=== PATIENT | male | born 1995 | race Caucasian/White ===

== ENCOUNTER 2020-05-01 13:25 | Emergency (ER) | payer SELFPAY ==
--- OUTSIDE RECORDS SUMMARY | 2020-05-01 13:28 | XMS REPORT | Clinical Summary ---
:1995 Author Organization [facility] Address [address] [place] [address] Care Team Providers Name Role Phone Pcp, Primary Care Provider Unavailable Allergies Active Allergy Reactions Severity Noted Date Comments Penicillins Other (See Comments) Low 11/28/2019 Childho od reaction Medications Medication Sig Dispensed Refills Start Date End Date Status predniSONE Take 2 15 tablet 0 11/28/2019 Active (DELTASONE) 10 MG tablets (20 tablet mg total) by mouth 3 (three) times daily. cyclobenzaprine Take 1 20 tablet 0 11/28/2019 Exp ired (FLEXERIL) 10 MG tablet (10 0 tablet mg total) by mouth every 8 (eight) hours as needed for Muscle spasms for up to 10 days. acetaminophen-codein Take 1-2 15 tablet 0 11/28/2019 12/03/19 2 Discontinued e (TYLENOL #3) tablets by 0 (Reo rder) 300-30 mg per tablet mouth every 6 (six) hours as needed for Pain for up to 10 days. Max Daily Amount: 8 tablets acetaminophen-codein Take 1-2 15 tablet 0 12/03/2019 12/03/19 2 Discontinued e (TYLENOL #3) tablets by 0 300-30 mg per mouth every tabletIndications: 6 (six) Chronic midline low hours as back pain with needed for left-sided sciatica Pain for up to 10 days. Max Daily Amount: 8 tablets acetaminophen-codein Take 1 30 tablet 0 12/03/2019 12/13/19 2 e (TYLENOL-CODEINE tablet by 0 #3) 300-30 mg per mouth every tabletIndications: 4 (four) Chronic midline low hours as back pain with needed for left-sided sciatica Pain for up to 10 days. 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 (Primary Dx); MD Christopher Acute left-side d low back pain with right-sided sciatica 11/28/2019 Emergency Emergency Medicine Zara Berman Left l ow back pain, MD Domi unspecified chr onicity, unspecified whe ther sciatica presen t (Primary Dx) 11/28/2019 Travel after 05/01/2019 Social History Tobacco Use Types Packs/Day Years Used Date Current Every Day Smoker Cigarettes 1 Smokeless Tobacco: Never Used Alcohol Use Drinks/Week oz/Week Comments Yes Sex Assigned at Date Recorded Not on file Last Filed Vital Signs Vital Sign Reading Time Taken Comments Blood Pressure 129/87 12/03/2019 10:44 AM CDT Pulse 116 12/03/2019 10:44 AM CDT Temperature 36.8 C (98.3 F) 11/28/2019 9:24 PM CDT Respiratory Rate 18 11/28/2019 9:24 PM CDT Oxygen Saturation 98% 12/03/2019 10:44 AM CDT Inhaled Oxygen Concentration - - Weight 140.6 kg (310 lb) 12/03/2019 10:44 AM CDT Height 175.3 cm (5' 9") 11/28/2019 8:00 PM CDT Body Mass Index 45.78 11/28/2019 8:00 PM CDT Plan of Treatment Health Maintenance Due Date Last Done Comments PNEUMOCOCCAL VACCINE 0-64 YRS (1 of 1 - PPSV23) 09/06/1999 LIPID PANEL 2013 INFLUENZA VACCINE (#1) 2019 Procedures Procedure Name Priority Date/Time Associated Diagnosis Comme nts XR SPINE LUMBAR STAT 11/28/2019 9:02 PM Resul ts for this COMPLETE MIN 4 CDT procedure are in VIEWS the results section. after 05/01/2019 Results XR spine lumbar complete 4 views min (11/28/2019 9:02 PM CDT) Specimen Narrative Performed At FINAL REPORT [facility] RAD, SPINE, LUMBAR, COMPLETE (MIN 4 VIEW S) CLINICAL INDICATION: BACK PAIN COMPARISON: None FINDINGS: Oblique, frontal, lateral and coned lateral radiographs of the lumbar spine. Alignment: No acute malalignment. Vertebral Bodies: Normal in height. Disc Spaces: Preserved. Soft tissues: Normal. IMPRESSION: No acute abnormality of the lumbar spine . Signed: Annamarie Morales MD Report Verified Date/Time: 11/28/2019 21:18:02 Procedure Note Interface, External Ris In - 11/28/2019 9:20 PM CDT FINAL REPORT RAD, SPINE, LUMBAR, COMPLETE (MIN 4 VIEW S) CLINICAL INDICATION: BACK PAIN COMPARISON: None FINDINGS: Oblique, frontal, lateral and coned lateral radiographs of the lumbar spine. Alignment: No acute malalignment. Vertebral Bodies: Normal in height. Disc Spaces: Preserved. Soft tissues: Normal. IMPRESSION: No acute abnormality of the lumbar spine . Signed: Annamarie Morales MD Report Verified Date/Time: 11/28/2019 2 1:18:02 Performing Organization Address City/State/Zipcode Phone Number GE RIS after 05/01/2019
--- OUTSIDE RECORDS SUMMARY | 2020-05-01 13:28 | XMS REPORT | Continuity of Care Document ---
:1995 Author Organization [facility] t Address [address] [place] [address] Care Team Providers Name Role Phone Pcp Primary Care Physician Unavailable Christopher Sanchez MD Attending Clinician Domi Berman MD Attending Clinician Problems This patient has no known problems. Allergies, Adverse Reactions, Alerts Allergy Allergy Status Severity Reaction(s) Onset Inactive Treating Comm ents Source Name Type Date Date Clinician Penicill Drug Active Other (See Childhood C HI [facility] ins Allergy Comments) 11-27 reaction Luke s - 00:00: Medical [address] [place] [address] Social History Social Habit Start Date Stop Date Quantity Comments Source History of tobacco Cigarette Smoker [facility] Sex Assigned At [facility] Cigarettes smoked 2019-12-03 2019-12-03 [facility] - current (pack per 00:00:00 00:00:00 Medical Center day) - Reported Tobacco use and 2019-12-03 2019-12-03 Never used [facility] - exposure 00:00:00 00:00:00 [facility] Alcohol intake 2019-12-03 2019-12-03 Current drinker [facility] - 00:00:00 00:00:00 of alcohol [facility] (finding) Smoking Status Start Date Stop Date Source Current every day smoker 2019-12-03 00:00:00 [facility] Medications Ordered Filled Start Stop Current Ordering Indication Dosage Frequency Signature Comments Components Source Medication Medication Date Date Medication? Clinician (SIG) Name Name acetaminoph 2019- No Chronic 1{tbl} Take [address] [facility] en-codeine 12-02 midline low tablet by Roni - (TYLENOL-CO 00:00: 23:59 back pain mouth Medical DEINE #3) 00 :00 with every 4 Center 300-30 mg left-sided (four) per tablet sciatica hours as needed for Pain for up to 10 days. Max Daily Amount: 6 tablets acetaminoph 2019- No Chronic 1{tbl} Take 1-[address] [facility] [address] en-codeine 12-02 midline low tablets by Roin - (TYLENOL 00:00: 00:00 back pain mouth Me dical #3) 300-30 00 :00 with every 6 Center mg per left-sided (six) tablet sciatica hours as needed for Pain for up to 10 days. Max Daily Amount: 8 tablets predniSONE Yes 20mg [id number] Take [address] [facility] [address] (DELTASONE) 11-27 [id number] tablets [facility] - 10 MG 00:00: 3D (20 mg Medical tablet 00 total) by Center mouth 3 (three) times daily. cyclobenzap 2019- No 10mg Take [address] [facility] [address] rine 11-27 tablet (10 [facility] - (FLEXERIL) 00:00: 23:59 mg total) M edical 10 MG 00 :00 by mouth Center tablet every 8 (eight) hours as needed for Muscle spasms for up to 10 days. acetaminoph 2019- No 1{tbl} Take 1-[address] en-codeine 11-27 tablets by Brook richter - (TYLENOL 00:00: 00:00 mouth Medical #3) 300-30 00 :00 every 6 Center mg per (six) tablet hours as needed for Pain for up to 10 days. Max Daily Amount: 8 tablets Vital Signs Vital Name Observation Time Observation Value Comments Source Systolic blood 2019-12-03 10:44:00 129 mm[Hg] [facility] Diastolic blood 2019-12-03 10:44:00 87 mm[Hg] [facility] Heart rate 2019-12-03 10:44:00 116 /min [facility] Body weight 2019-12-03 10:44:00 140.615 kg [facility] BMI 2019-12-03 10:44:00 45.78 kg/m2 [facility] Oxygen saturation in 2019-12-03 10:44:00 98 /min [facility] - Arterial blood by Medical Ce nter Pulse oximetry Body temperature 2019-11-28 21:24:00 36.83 Evelyne [facility] Respiratory rate 2019-11-28 21:24:00 18 /min [facility] Body height 2019-11-28 20:00:00 175.3 cm [facility] Procedures Procedure Date / Time Performed Performing Clinician Sour e XR SPINE LUMBAR 2019-11-28 21:02:00 Zara Berman [facility] - COMPLETE MIN [address] Plan of Care Planned Activity Planned Date Details Comments Source Future Scheduled 2019-12-07 INFLUENZA VACCINE (#1) [facility] - Test 00:00:00 [code = INFLUENZA Medical Ce nter VACCINE (#1)] Future Scheduled 2013 Lipid panel [facility] - Test 00:00:00 (procedure) [code = [facility] [id number]] Future Scheduled 1999-09-06 PNEUMOCOCCAL VACCINE [facility] - Test 00:00:00 0-64 YRS (1 of 1 - Medical C enter PPSV23) [code = PNEUMOCOCCAL VACCINE 0-64 YRS (1 of 1 - PPSV23)] Results Test Description Test Time Test Comments Results Result Sour e Comments RAD, SPINE, 2019-11-28 Reason for FINAL REPORT LUMBAR, COMPLETE 21:18:00 exam:->BACK PATIENT ID: (MIN 4 VIEWS) PAIN [id number] RAD, SPINE, LUMBAR, COMPLETE (MIN 4 VIEWS) CLINICAL INDICATION: BACK PAIN COMPARISON: None FINDINGS: Oblique, frontal, lateral and coned lateral radiographs of the lumbar spine. Alignment: No acute malalignment.Verteb ral Bodies: Normal in height.Disc Spaces: Preserved.Soft tissues: Normal. IMPRESSION: No acute abnormality of the lumbar spine. Signed: Annamarie Morales MDReport Verified Date/Time: 11/28/2019 21:18:02 spine lumbar 2019-11-28 Interface, External [facility] complete 4 views 21:18:00 Ris In - 11/28/2019 - Medical min 9:20 PM [facility] RAD, SPINE, LUMBAR, COMPLETE (MIN 4 VIEWS) CLINICAL INDICATION: BACK PAIN COMPARISON: None FINDINGS: Oblique, frontal, lateral and coned lateral radiographs of the lumbar spine. Alignment: No acute malalignment.Verteb ral Bodies: Normal in height.Disc Spaces: Preserved.Soft tissues: Normal. IMPRESSION: No acute abnormality of the lumbar spine. Signed: Annamarie Morales [facility] Verified Date/Time: 11/28/2019 21:18:02
[2020-05-01 15:35] LABS: SARS-COV-2 RT PCR NEGATIVE (NEGATIVE)
--- NOTE | 2020-05-01 15:46 | ER ---
Nurse's Notes [facility] Name: Mono Rodriguez Age: 24 yrs Sex: Male : 1995 Arrival Date: 05/01/2020 Time: 13:31 Bed 25 Private MD: Diagnosis: Acute upper respiratory infection, unspecified Presentation: 05/01 13:40 Chief complaint: Patient states: i have diarrhea cough sore throat yesterday morning, tw2 no diarrhea since then, i am congested, my stomach is turning, i have to get checked out before i am able to go to work. Chief complaint: Patient states: also have a headache. Coronavirus screen: cough unrelated to allergies, diarrhea, fatigue, fever, nausea, runny nose, sore throat, vomiting. Client presents with at least one sign or symptom that may indicate coronavirus-19. Standard/surgical mask placed on the client. Provider contacted for isolation considerations. Ebola Screen: Patient denies travel to an Ebola-affected area in the 21 days before illness onset. Initial Sepsis Screen: Does the patient meet any 2 criteria? No. Patient's initial sepsis screen is negative. Does the patient have a suspected source of infection? No. Patient's initial sepsis screen is negative. Risk Assessment: Do you want to hurt yourself or someone else? Patient reports no desire to harm self or others. Onset of symptoms was May 01, 2020. 13:40 Method Of Arrival: Ambulatory tw2 13:40 Acuity: KRYSTINA 4 tw2 Triage Assessment: 13:40 General: Appears obese, well groomed, Behavior is calm, cooperative, appropriate for tw2 age. EENT: Reports nasal congestion. Neuro: Level of Consciousness is awake, alert, obeys commands, Oriented to person, place, time, situation. Cardiovascular: Patient's skin is warm and dry. Respiratory: Reports. Respiratory: Airway is patent Respiratory effort is even, unlabored, Respiratory pattern is regular, symmetrical. GI: No signs and/or symptoms were reported involving the gastrointestinal system. : No signs and/or symptoms were reported regarding the genitourinary system. Derm: No signs and/or symptoms reported regarding the dermatologic system. Musculoskeletal: Range of motion: intact in all extremities. Historical: - Allergies: 13:43 PENICILLINS; tw2 - Home Meds: 13:43 ear drops [Active]; tw2 - PMHx: 13:43 None; tw2 - PSHx: 13:43 None; tw2 - Immunization history:: Adult Immunizations. - Social history:: Smoking status: . Screenin:57 Abuse screen: Denies threats or abuse. Nutritional screening: No deficits noted. tw2 Tuberculosis screening: No symptoms or risk factors identified. Fall Risk None identified. Assessment: 15:35 General: Appears in no apparent distress. Behavior is calm, cooperative. Pain: Denies hb pain. Neuro: Level of Consciousness is awake, alert, obeys commands, Oriented to person, place, time, situation. Cardiovascular: Capillary refill < 3 seconds Patient's skin is warm and dry. Respiratory: Airway is patent Respiratory effort is even, unlabored, Respiratory pattern is regular, symmetrical. GI: No signs and/or symptoms were reported involving the gastrointestinal system. : No signs and/or symptoms were reported regarding the genitourinary system. EENT: No signs and/or symptoms were reported regarding the EENT system. Derm: Skin is pink, warm \T\ dry. Musculoskeletal: No signs and/or symptoms reported regarding the musculoskeletal system. Vital Signs: 13:40 BP 136 / 86; Pulse 87; Resp 18; Temp 97.9(TE); Pulse Ox 100% on R/A; Weight 136.08 kg tw2 (R); Height 5 ft. 9 in. (175.26 cm); Pain 0/10; 13:40 Body Mass Index 44.30 (136.08 kg, 175.26 cm) tw2 ED Course: 13:31 Patient arrived in ED. ds1 13:42 Triage completed. tw2 13:43 Arm band placed on. tw2 14:18 Rosalinda Aguilar FNP-C is PHCP. kb 14:18 Zoran Dhillon MD is Attending Physician. kb 15:32 Bed in low position. Call light in reach. tw2 15:46 Zara Espino, RN is Primary Nurse. hb 15:58 No provider procedures requiring assistance completed. Patient did not have IV access hb during this emergency room visit. Administered Medications: No medications were administered Outcome: 15:44 Discharge ordered by . kb 15:58 Discharged to home ambulatory. hb 15:58 Condition: stable 15:58 Discharge instructions given to patient, Instructed on discharge instructions, follow up and referral plans. medication usage, Demonstrated understanding of instructions, follow-up care, medications, Prescriptions given X 2. 15:58 Patient left the ED. hb Signatures: Rosalinda Aguilar, CULLEN-C CULLEN-Georgie Ponce ds1 Zara Espino, RN RN hb Lalita Ma RN RN tw2
--- NOTE | 2020-05-01 15:46 | EDPHYS ---
Physician Documentation [facility] Name: Mono Rodriguez Age: 24 yrs Sex: Male : 1995 Arrival Date: 05/01/2020 Time: 13:31 Bed 25 Private MD: ED Physician Zoran Dhillon HPI: 05/01 16:32 This 24 yrs old Male presents to ER via Ambulatory with complaints of kb congestion, r/o covid. 16:32 The patient or guardian reports cough, that is intermittent, described as mild, with no kb sputum, flu symptoms, myalgias. Onset: The symptoms/episode began/occurred yesterday. Severity of symptoms: At their worst the symptoms were moderate, in the emergency department the symptoms have improved. Modifying factors: The symptoms are alleviated by nothing, the symptoms are aggravated by nothing. Associated signs and symptoms: Pertinent positives: diarrhea, sore throat. The patient has not experienced similar symptoms in the past. The patient has not recently seen a physician. 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 They sent all of these guys home, but I woke up the next day with cough, sore throat, and diarrhea. I really just want to make sure it isn't COVID and get a form to go back to work.". Historical: - Allergies: 13:43 PENICILLINS; tw2 - Home Meds: 13:43 ear drops [Active]; tw2 - PMHx: 13:43 None; tw2 - PSHx: 13:43 None; tw2 - Immunization history:: Adult Immunizations. - Social history:: Smoking status: . ROS: 16:31 Neck: Negative for injury, pain, and swelling, Cardiovascular: Negative for chest pain, kb palpitations, and edema, Back: Negative for injury and pain, MS/Extremity: Negative for injury and deformity, Skin: Negative for injury, rash, and discoloration, Neuro: Negative for headache, weakness, numbness, tingling, and seizure. 16:31 Constitutional: Positive for fatigue, malaise. 16:31 ENT: Positive for sore throat. kb 16:31 Respiratory: Positive for cough, Negative for dyspnea on exertion, hemoptysis, orthopnea, pleurisy, shortness of breath, sputum production, wheezing. 16:31 Abdomen/GI: Positive for diarrhea. Exam: 16:32 Constitutional: This is a well developed, well nourished patient who is awake, alert, kb and in no acute distress. Head/Face: Normocephalic, atraumatic. ENT: Nares patent. No nasal discharge, no septal abnormalities noted. Tympanic membranes are normal and external auditory canals are clear. Oropharynx with no redness, swelling, or masses, exudates, or evidence of obstruction, uvula midline. Mucous membranes moist. Chest/axilla: Normal chest wall appearance and motion. Nontender with no deformity. No lesions are appreciated. Cardiovascular: Regular rate and rhythm with a normal S1 and S2. No gallops, murmurs, or rubs. Normal PMI, no JVD. No pulse deficits. Respiratory: Lungs have equal breath sounds bilaterally, clear to auscultation and percussion. No rales, rhonchi or wheezes noted. No increased work of breathing, no retractions or nasal flaring. Abdomen/GI: Soft, non-tender, with normal bowel sounds. No distension or tympany. No guarding or rebound. No evidence of tenderness throughout. Skin: Warm, dry with normal turgor. Normal color with no rashes, no lesions, and no evidence of cellulitis. MS/ Extremity: Pulses equal, no cyanosis. Neurovascular intact. Full, normal range of motion. Neuro: Awake and alert, GCS 15, oriented to person, place, time, and situation. Cranial nerves II-XII grossly intact. Motor strength 5/5 in all extremities. Sensory grossly intact. Cerebellar exam normal. Normal gait. Vital Signs: 13:40 BP 136 / 86; Pulse 87; Resp 18; Temp 97.9(TE); Pulse Ox 100% on R/A; Weight 136.08 kg tw2 (R); Height 5 ft. 9 in. (175.26 cm); Pain 0/10; 13:40 Body Mass Index 44.30 (136.08 kg, 175.26 cm) tw2 MDM: 14:18 Data reviewed: vital signs, nurses notes. Data interpreted: Pulse oximetry: on room air kb is 100 %. Interpretation: normal. 15:33 Patient medically screened. kb 16:30 Counseling: I had a detailed discussion with the patient and/or guardian regarding: the kb historical points, exam findings, and any diagnostic results supporting the discharge/admit diagnosis, lab results, the need for outpatient follow up, a family practitioner, to return to the emergency department if symptoms worsen or persist or if there are any questions or concerns that arise at home. 05/01 15:35 Order name: COVID-19/FLU A+B; Complete Time: 15:37 EDMS Administered Medications: No medications were administered Disposition: 16:31 Co-signature as Attending Physician, Zoran Dhillon MD. rn Disposition: 05/01/20 15:44 Discharged to Home. Impression: Acute upper respiratory infection, unspecified. - Condition is Stable. - Discharge Instructions: Upper Respiratory Infection, Adult, Viral Respiratory Infection. - Prescriptions for Bentyl 20 mg Oral Tablet - take 1 tablet by ORAL route every 6 hours As needed; 20 tablet. Zofran 4 mg Oral Tablet - take 1 tablet by ORAL route every 6 hours As needed; 20 tablet. - Medication Reconciliation Form, Thank You Letter, Antibiotic Education, Prescription Opioid Use, Work release form form. - Follow up: Emergency Department; When: As needed; Reason: Worsening of condition. Follow up: Private Physician; When: 2 - 3 days; Reason: Recheck today's complaints, Continuance of care, Re-evaluation by your physician. Signatures: Dispatcher [employer] EDNV Rosalinda Aguilar, SEMICONDUCTOR WAFER INSPECTOR-C SEMICONDUCTOR WAFER INSPECTOR-Ckb Zoran Dhillon MD MD rn Baxter, Heather, RN RN hb Wise, Tara, RN RN tw2 Corrections: (The following items were deleted from the chart) 14:48 14:17 Influenza Screen (A \\T\\ B)+BA.LAB.BRZ ordered. EDNV EDNV 14:48 14:17 CORONAVIRUS+MR.LAB.BRZ ordered. [facility] EDMS 15:58 15:44 05/01/2020 15:44 Discharged to Home. Impression: Acute upper respiratory hb infection, unspecified. Condition is Stable. Forms are Work release form, Medication Reconciliation Form, Thank You Letter, Antibiotic Education, Prescription Opioid Use. Follow up: Emergency Department; When: As needed; Reason: Worsening of condition. Follow up: Private Physician; When: 2 - 3 days; Reason: Recheck today's complaints, Continuance of care, Re-evaluation by your physician. kb 16:32 16:31 Constitutional: Positive for kb kb
[2020-05-01 16:03] VITALS: BP 136/86; TEMP 97.9; O2SAT 100
== END 2020-05-01 15:58 | disposition home or self-care (01) ==
LOC: ER 13:25
DX: J06.9 Acute upper respiratory infection, unspecified (principal); Z20.822 Contact with and (suspected) exposure to COVID-19
CPT/HCPCS: 0240U; 99282